=== PATIENT | male | born 1975 | race Caucasian/White ===

== ENCOUNTER 2019-09-09 10:27 | Outpatient (REF) | payer BC, SELFPAY ==
[2019-09-09 12:37] LABS: HCT 44.2 % (40.0-50.0); HGB 14.3 g/dL (13.5-17.5); Mean Corp. HGB Concentration 32.4 g/dL (32.0-36.0); Mean Corpuscular Hemoglobin 27.8 pg (27.0-33.0); Mean Corpuscular Volume 85.8 fL (80-95); Mean Platelet Volume 10.8 fL (8.0-11.0); Platelet Count 316 x1000/uL (130-400); RBC 5.15 m/cumm (4.50-6.00); RBC Distribution Width 13.2 % (11.8-14.1); White Blood Cell Count 5.45 k/cumm (4.4-10.8)
[2019-09-09 12:48] LABS: Prothrombin Time 9.9 sec (9.3-11.0)
[2019-09-09 12:49] LABS: ALT 30 U/L (16-63); AST 24 U/L (15-37); Albumin 4.6 g/dL (3.4-5.0); Alkaline Phosphatase 56 U/L (46-116); Anion Gap 11.4 mmol/L (3-11); BUN 21 mg/dL (7-18); Bilirubin, Total 0.5 mg/dL (0.2-1.0); CO2 27.6 mmol/L (21.0-32.0); Calcium 9.6 mg/dL (8.5-10.1); Chloride 105 mmol/L (98-107); Glucose 90 mg/dL (70-100); Potassium 4.7 mmol/L (3.5-5.1); Sodium 144 mmol/L (136-145); Total Protein 7.8 g/dL (6.4-8.2)
== END 2019-09-09 10:47 ==
LOC: NCHCN 10:27
PROVIDERS: PCP Family Medicine; Visit Provider Family Medicine
DX: R14.0 Abdominal distension (gaseous) (principal); F10.99 Alcohol use, unspecified with unspecified alcohol-induced disorder
CPT/HCPCS: 80053; 85027; 85610

== ENCOUNTER 2019-09-13 01:24 | Outpatient (CLI) | payer BC, SELFPAY ==
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
== END 2019-09-13 01:44 ==
PROVIDERS: PCP Family Medicine; Visit Provider Family Medicine
DX: R14.0 Abdominal distension (gaseous) (principal); F10.10 Alcohol abuse, uncomplicated
CPT/HCPCS: 76700

== ENCOUNTER 2020-03-04 09:54 | Emergency (ER) | payer BC, SELFPAY ==
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
[2020-03-04 09:58] VITALS: BP 155/86; PULSE 80; RESP 16; TEMP 36.3; O2SAT 98
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
--- NOTE | 2020-03-04 10:17 | DI.RAD_ITS ---
EXAM: XR WRIST RT COMPLETE CLINICAL HISTORY: rolled wrist, ulnar pain. TECHNIQUE: 2D digital imaging was performed. COMPARISON: No exams were available for comparison FINDINGS: BONES: No acute fracture is present. No bony destructive lesion is seen. JOINTS: The carpal bones are normally aligned. SOFT TISSUE: Normal. IMPRESSION: Unremarkable radiographs of the right wrist. DATA REPOSITORY: RADIATION DOSE DELIVERED:
--- NOTE | 2020-03-04 10:30 | DI.VRAD_ITS ---
PROCEDURE INFORMATION: Exam: XR Right Hand Exam date and time: 03/04/2020 10:17 AM Age: 44 years old Clinical indication: Other: Pain ulnar side after punching bag TECHNIQUE: Imaging protocol: XR Right hand. Views: 3 or more views. COMPARISON: No relevant prior studies available. FINDINGS: There is a smooth base of ulnar styloid step-off without associated soft tissue swelling, likely chronic. Otherwise, no evidence of acute fracture. No dislocation. Alignment is maintained. Joint spaces are maintained. IMPRESSION: There is a smooth base of ulnar styloid step-off without associated soft tissue swelling, likely chronic. Otherwise, no evidence of acute fracture. Dictated and Authenticated by: Isaiah Crump MD. Ordering:ROSALIND Giang MD
--- NOTE | 2020-03-04 10:31 | DI.VRAD_ITS ---
PROCEDURE INFORMATION: Exam: XR Right Wrist Exam date and time: 03/04/2020 10:18 AM Age: 44 years old Clinical indication: Other: Rolled wrist, ulnar pain TECHNIQUE: Imaging protocol: XR Right wrist. Views: 3 or more views. COMPARISON: No relevant prior studies available. FINDINGS: There is a smooth base of ulnar styloid step-off without associated soft tissue swelling, likely chronic. Otherwise, no evidence of acute fracture. No dislocation. Alignment is maintained. Joint spaces are maintained. IMPRESSION: There is a smooth base of ulnar styloid step-off without associated soft tissue swelling, likely chronic. Otherwise, no evidence of acute fracture. Dictated and Authenticated by: Isaiah Crump MD. Ordering:ROSALIND Giang MD
== END 2020-03-04 10:45 | disposition home or self-care (01) ==
PROVIDERS: Emergency Provider Physician Assistant; PCP Family Medicine
DX: S63.501A Unspecified sprain of right wrist, initial encounter (principal); W21.89XA Striking against or struck by other sports equipment, initial encounter
CPT/HCPCS: 29125; 99283; 73110; 73130; L3908

== ENCOUNTER 2021-12-04 15:08 | Outpatient (REF) | payer BC, SELFPAY ==
[2021-12-04 15:13] LABS: HCT 47.1 % (40.0-50.0); HGB 14.8 g/dL (13.5-17.5); MCH 27.3 pg (27.0-33.0); MCHC 31.4 % (32.0-36.0); MCV 86.7 fL (80-95); MPV 10.5 fL (8.0-11.0); Platelet Count 332 10^3/uL (130-400); RBC 5.43 10^6/uL (4.36-5.78); RDW 13.2 % (11.8-14.1); RDW-SD 41.2 fL; WBC 6.26 10^3/uL (4.4-10.8)
[2021-12-04 15:31] LABS: Hemoglobin A1C 5.5 % (<5.7)
[2021-12-04 15:46] LABS: ALT 51 U/L (16-63); AST 29 U/L (15-37); Albumin 4.3 g/dL (3.4-5.0); Alkaline Phosphatase 76 U/L (46-116); Anion Gap 10.8 mmol/L (3-11); BUN 18 mg/dL (7-18); Bilirubin, Total 0.4 mg/dL (0.2-1.0); CO2 28.2 mmol/L (21.0-32.0); CREATININE 1.1 mg/dL (0.70-1.30); Calcium 9.1 mg/dL (8.5-10.1); Calculated LDL 203 mg/dL (<100); Chloride 103 mmol/L (98-107); Cholesterol 294 mg/dL (<200); Glucose 99 mg/dL (74-106); HDL Cholesterol 56 mg/dL (40-60); Potassium 4.2 mmol/L (3.5-5.1); Sodium 142 mmol/L (136-145); TSH (W/Ref FT4) 1.59 uIU/mL (0.36-3.74); Total Protein 7.6 g/dL (6.4-8.2); Triglyceride 176 mg/dL (<150)
[2021-12-05 12:03] LABS: HBs Antibody, Quant 147.4 mIU/mL (See Note); Hepatitis B Surface Ab Positive (See Note)
[2021-12-05 12:12] LABS: Hepatitis B Surface Ag Negative (Negative)
[2021-12-05 12:41] LABS: Hep B Core Antibody Negative (Negative)
[2021-12-05 13:02] LABS: Hepatitis C Ab w Rflx HCV PCR Negative (Negative)
[2021-12-05 14:38] LABS: HIV-1/2 Ag & Ab Screen Negative (Negative)
== END 2021-12-04 15:09 | disposition home or self-care (01) ==
LOC: NCHCN 15:08
PROVIDERS: PCP Family Medicine; Visit Provider Family Medicine
DX: R63.5 Abnormal weight gain (principal); R23.8 Other skin changes; F10.10 Alcohol abuse, uncomplicated; Z00.00 Encounter for general adult medical examination without abnormal findings; Z13.220 Encounter for screening for lipoid disorders; Z13.1 Encounter for screening for diabetes mellitus; Z11.4 Encounter for screening for human immunodeficiency virus [HIV]; Z11.59 Encounter for screening for other viral diseases
CPT/HCPCS: 80053; 80061; 85027; 86704; 86706; 86803; 87340; 87389; 83036; 84443

== ENCOUNTER 2022-03-17 07:42 | Outpatient (REF) | payer BC, SELFPAY ==
[2022-03-17 18:13] LABS: ALT 87 U/L (16-63); Calculated LDL 79 mg/dL (<100); Cholesterol 171 mg/dL (<200); HDL Cholesterol 78 mg/dL (40-60); Triglyceride 71 mg/dL (<150)
== END 2022-03-17 07:43 | disposition home or self-care (01) ==
LOC: NCHCN 07:42
PROVIDERS: PCP Family Medicine; Visit Provider Family Medicine
DX: E78.5 Hyperlipidemia, unspecified (principal); Z79.899 Other long term (current) drug therapy
CPT/HCPCS: 80061; 84460

== ENCOUNTER 2022-12-24 13:44 | Outpatient (REF) | payer BC, SELFPAY ==
[2022-12-24 15:19] LABS: HCT 44.5 % (40.0-50.0); MCH 26.9 pg (27.0-33.0); MCHC 31.5 % (32.0-36.0); MCV 85 fL (80-95); MPV 10.2 fL (8.0-11.0); Platelet Count 303 10^3/uL (130-400); RBC 5.21 10^6/uL (4.36-5.78); RDW 13.7 % (11.8-14.1); RDW-SD 42.7 fL; WBC 7.14 10^3/uL (4.4-10.8)
[2022-12-24 15:51] LABS: ALT 31 U/L (16-63); AST 20 U/L (15-37); Albumin 3.9 g/dL (3.4-5.0); Alkaline Phosphatase 81 U/L (46-116); Anion Gap 9.3 mmol/L (3-11); BUN 12 mg/dL (7-18); Bilirubin, Total 1.1 mg/dL (0.2-1.0); CO2 27.7 mmol/L (21.0-32.0); CREATININE 1.1 mg/dL (0.70-1.30); Calcium 9.6 mg/dL (8.5-10.1); Chloride 106 mmol/L (98-107); Estimated GFR 83.84 (mL/min/1.73m2); Glucose 105 mg/dL (74-106); Sodium 143 mmol/L (136-145); Total Protein 7.5 g/dL (6.4-8.2)
== END 2022-12-24 13:45 | disposition home or self-care (01) ==
LOC: NCHCN 13:44
PROVIDERS: PCP Family Medicine; Visit Provider Family Medicine
DX: R19.7 Diarrhea, unspecified (principal)
CPT/HCPCS: 80053; 85027; 84443

== ENCOUNTER 2023-09-07 06:58 | Day surgery (SDC) | payer BC, SELFPAY ==
--- NOTE | 2023-09-06 15:32 | W.PM.DSUDISC ---
Date of service: 09/07/23 Time of Service: 08:40 Discharge Plan Disposition Patient Disposition: Home Condition: Good Discharge Details Reason For Visit: Screening colonoscopy Attending Provider: Trevon Jara Primary Care Provider: Rosemary Acharya Home Meds and New Rx's Prescriptions: Continued rosuvastatin 40 mg tablet 40 mg PO DAILY Qvar RediHaler 40 mcg/actuation HFA aerosol breath activated 2 inh inhalation BID omeprazole 40 mg capsule,delayed release(DR/EC) 40 mg PO DAILY albuterol sulfate 8.5 GM HFA aerosol inhaler 2 puff Inhalation PRN PRN Discontinued bisacodyl [Dulcolax (bisacodyl)] 5 mg tablet,delayed release (DR/EC) 5 mg PO ONCE Qty: 4 0RF Rx Instructions: Take per colonoscopy instructions provided by ordering providers office polyethylene glycol 3350 17 gram/dose powder 17 g PO ONCE Qty: 238 0RF Rx Instructions: Take per colonoscopy instructions provided by ordering providers office Discharge Instructions Additional Instructions: Rupesh, we were able to do your colonoscopy today without any difficulty. The quality of your prep was excellent. The colon was entirely normal. You will need another colonoscopy in 10 years. 1. If tolerated, consume a soft, low fiber diet for 1-2 days. 2[address] Do not drive, drink alcohol, operate machinery, make critical decisions, or do activities that require coordination or balance for 24 hours. 3. Because air was put into your colon during the procedure, expelling air from your rectum (passing gas or farting) is normal. 4. You may not have a bowel movement for 1-3 days because of the colonoscopy prep. This is normal. 5. Go directly to the emergency room if you notice any of the following: Develop chills (warm to touch), or if you have a thermometer and your temperature is above 101 Difficulty breathing or difficultly swallowing Persistent vomiting Severe abdominal pain, other than gas cramps Severe chest pain Black, tarry stools Any bleeding ? exceeding one tablespoon 6. Call your physician if the site where your intravenous was started becomes red, swollen, painful, and warm to touch. 7. Your physician has reviewed your pre-procedure medications. Please continue to take those medications as previously ordered. You will be given specific information/education regarding any changes to your medications before leaving. Activity:: Activity as Tolerated Diet:: As Tolerated Discharge Orders Discharge Orders: Discharge Order (Routine); Ordered 09/06/23 Ordered By: Trevon Jara DS: Diagnosis Discharge Diagnosis (1) Screen for colon cancer: Status: Acute Asessment and Plan: Normal screening colonoscopy; consider another follow-up in 10 years
--- NOTE | 2023-09-06 15:33 | W.COLOREPORT ---
Date of service: 09/07/23 Time of Service: 08:41 Colonoscopy Report Date of procedure: 09/07/23 Pre-op diagnosis general: screening colonoscopy Post-op diagnosis procedure note: other (Negative screening colonoscopy) Procedure: Colonoscopy Surgeon: Trevon Jara Anesthesia Type: General:No Airway Estimated blood loss (mL): 0 Pathology: none sent Complications: None Disposition: same day Indications: Rupesh is 48 years old and he needs a screening colonoscopy Prep: Miralax/Dulcolax Procedure Start Time: 08:20 Procedure End Time: 08:33 Retraction Time: 10 Findings: Negative screening colonoscopy Procedure Description: After the induction of monitored anesthetic care, and with the patient in left lateral decubitus position, I began by performing an external anorectal exam.? Perineum and skin were normal, as was the anal verge.? There was no not evidence of external hemorrhoids.? Next, I performed a digital rectal exam.? I did appreciate any abnormal findings.? Next, I advanced a colonoscope into the rectal vault.? I performed retroflexion.? This was normal.? Using insufflation, I then advanced the colonoscope beyond the rectal folds and into the sigmoid colon before advancing towards the cecum.? The quality of the prep was outstanding.? The scope was noted to be in the cecum by identification of the ileocecal valve and appendiceal orifice.? I then began withdrawing the colonoscope using repeated irrigation as necessary for full evaluation of the colonic mucosa. ?Once the scope was withdrawn to the level of the rectum, great care was taken to examine portions of the rectal folds.? I did not see any signs of tumors, polyps, or any other significant abnormalities of the colon. Finally, the scope was withdrawn and the patient was brought to the same-day surgery recovery unit as the anesthetic wore off. ?The findings and instructions were shared with the patient prior to discharge.
--- NOTE | 2023-09-07 05:11 | W.ANESPRE ---
General Info Date of Service Date Performed: 09/07/23 Height: 5 ft 9 in Weight: 98.43 kg Body Mass Index (BMI): 32.0 Surgical Procedure: Operation Date: 09/07/23 08:20 Proposed Procedure Side Surgeon parvez Jara MD Meds Allergies and Home Medications Allergies Allergy/AdvReac Type Severity Reaction Status Date / Time Penicillins Allergy Intermediate Hives Unverified 09/07/23 07:22 shellfish derived Allergy Intermediate Other (See Unverified 09/07/23 07:22 Comment) Home Medication Medication Instructions Recorded albuterol sulfate 90 mcg/actuation 2 puff inhalation PRN PRN 11/26/13 aerosol inhaler beclomethasone dipropionate 40 2 inh inhalation BID 06/05/23 mcg/actuation HFA breath activated aerosol (Qvar RediHaler) omeprazole 40 mg capsule,delayed 40 mg PO DAILY 06/05/23 release rosuvastatin 40 mg tablet 40 mg PO DAILY 06/05/23 Current Visit Medications: Current Medications Generic Name Dose Route Start Last Admin Trade Name Freq PRN Reason Stop Dose Admin Hyoscyamine Sulfate 0.125 mg 09/06/23 15:34 Hyoscyamine 0.125 Mg Sl/Oral/Chew SL 10/06/23 15:33 DIRECTED PRN Ringer's Solution 1,000 mls @ 80 mls/hr 09/07/23 06:00 IV 09/07/23 23:59 INFUSION ANNE IV Miscellaneous Supplies 1 each 09/07/23 06:00 Iv Access IV 09/07/23 23:59 DIRECTED ANNE Ondansetron HCl 4 mg 09/06/23 15:34 Ondansetron 4 Mg/2 Ml Vial IVP 10/06/23 15:33 Q4H PRN PRN Nausea / Vomiting Sodium Chloride 0 ml 09/07/23 06:00 Normal Saline Flush 10 Ml Syr IV 09/07/23 23:59 PRN PRN Sodium Chloride 0 ml 09/07/23 06:00 Normal Saline 10 Ml Vial IJ 09/07/23 23:59 DIRECTED PRN Sterile Water 0 ml 09/07/23 06:00 Water,Injection,Sterile 10 Ml Vial IJ 09/07/23 23:59 DIRECTED PRN PFSH Active Problems Active Problems: Problem Status Onset Code Screen for colon cancer Z12.11 Alcohol abuse F10.10 Obesity E66.9 Hyperlipidemia E78.5 Pain, joint, shoulder, left M25.512 Neck pain, chronic M54.2, G89.29 Diarrhea R19.7 Medical History Medical History (Updated 09/07/23 @ 07:26 by Carleen Coleman) Achilles tendon rupture Chronic blepharitis Hordeolum externum of right eye Elevated blood pressure reading Surgical History Surgical History (Updated 09/07/23 @ 07:26 by Carleen Coleman) History of ankle surgery achilles tendon repair bilaterally Tobacco Smoking/Tobacco Use Status: Never Alcohol Alcohol Intake: current Alcohol intake frequency: 3 or more drinks per day Substance Use Substance use: Never Substance use type: does not use Vital Signs and Lab Results Vital Signs Most Recent Vital Signs in EMR: Temp Pulse Resp BP Pulse Ox 36.3 C L 84 14 139/106 H 97 09/07/23 07:31 09/07/23 07:31 09/07/23 07:31 09/07/23 07:31 09/07/23 07:31 Lab Results Blood Type / Crossmatch: No Data to Display Complete Blood Count: No Data to Display Complete Metabolic Panel: No Data to Display Liver Function Panel: No Data to Display Coagulation Panel: No Data to Display Cardiac Panel: No Data to Display Arterial Blood Gas: No Data to Display Venous Blood Gas: No Data to Display Pancreas Panel: No Data to Display Thyroid Panel: No Data to Display Infectious Disease: No Data to Display Blood Cultures: No Data to Display Toxicology Panel: No Data to Display Anesthesia Assessment and Plan Anesthesia History Personal History: No History of Anesthesia Complications Family History: No Family History of Anesthesia Complications Exercise Tolerance Exercise Tolerance: Metabolic Equivalents>4 Cardiac & Pulmonary Exam Cardiac Exam: Normal S1/S2 Heart Sounds Pulmonary Exam: Clear Bilateral Breath Sounds Implantable Cardiac Device Does patient have a Pacemaker or an ICD?: No Airway Exam Known Difficult Airway: No Mallampati Class: 3 Mouth Opening: Normal (> 3cm) Thyromental Distance: Less than 3 cm Neck Range of Motion: Full ROM Neck Circumference: Normal Teeth Condition: Normal Dentition ASA Classification ASA Score: ASA 2 Emergency Case?: No NPO Status NPO Status: NPO Clears >2 hours, Solids >8 hours Anesthesia Plan Resuscitation Status: Full Code Anesthesia Technique: General Anesthesia Airway Planned: Natural Airway Monitors Used: Standard Monitors Preoperative Comments:: 48 yo male for colo. Sig PMHx: asthma (albuterol, Qvar), GERD (omeprazole), daily EtOH, neck pain. never smoker.
[2023-09-07 07:31] VITALS: BP 139/106; PULSE 84; RESP 14; TEMP 36.3; O2SAT 97
[2023-09-07] MEDS: Lactated Ringers 1,000 ML 80 ML IV (07:40)
[2023-09-07 07:41] VITALS: BMI 32.0
[2023-09-07 08:40] VITALS: BP 129/90; PULSE 78; RESP 17; TEMP 36.5; O2SAT 97
--- NOTE | 2023-09-07 08:48 | W.ANESPOSTOP ---
Postoperative Evaluation Date, Time and Location Date Performed: 09/07/23 Time Performed: 08:48 Patient Location: Day Surgery Unit Vital Signs Most Recent Imported Vital Signs: Most Recent Vital Signs Temp Pulse Resp BP Pulse Ox 36.5 C 78 17 129/90 97 09/07/23 08:40 09/07/23 08:40 09/07/23 08:40 09/07/23 08:40 09/07/23 08:40 Pain Score Most Recent Pain Score: Most Recent Pain Score Pain Level 0 09/07/23 08:40 Assessment Mental Status: Awake (Alert & Oriented to Patient Baseline) Airway and Respiratory Function: Patent airway with normal (patient baseline) respiratory exam Cardiovascular Function: Hemodynamically Stable Hydration Status: Adequately Hydrated Nausea & Vomiting: No Nausea or Vomiting Pain: Pt. Denies Any Pain Peripheral Nerve Block: Patient did not receive a nerve block
[2023-09-07 09:09] VITALS: BP 127/96; PULSE 72; RESP 18; TEMP 36.6; O2SAT 99
== END 2023-09-07 09:35 | disposition home or self-care (01) ==
LOC: SUR 06:59
PROVIDERS: PCP Family Medicine; Visit Provider Surgery
PROC: 0DJD8ZZ Inspection of Lower Intestinal Tract, Via Natural or Artificial Opening Endoscopic (ICD-10-PCS; CPT 45378; principal; 2023-09-07 08:15)
DX: Z12.11 Encounter for screening for malignant neoplasm of colon (principal); K21.9 Gastro-esophageal reflux disease without esophagitis
CPT/HCPCS: 45378; 00123; J2001

== ENCOUNTER 2024-06-08 19:21 | Outpatient (REF) | payer BC, SELFPAY ==
[2024-06-08 20:36] LABS: HCT 42.8 % (40.0-50.0); HGB 14.1 g/dL (13.5-17.5); MCH 27.5 pg (27.0-33.0); MCHC 32.9 % (32.0-36.0); MCV 84 fL (80-95); MPV 10.8 fL (8.0-11.0); Platelet Count 272 10^3/uL (130-400); RBC 5.12 10^6/uL (4.36-5.78); RDW 13.6 % (11.8-14.1); RDW-SD 41.8 fL; WBC 5.37 10^3/uL (4.4-10.8)
[2024-06-08 20:51] LABS: ALT 52 U/L (16-63); AST 29 U/L (15-37); Albumin 4.1 g/dL (3.4-5.0); Alkaline Phosphatase 68 U/L (46-116); Anion Gap 9.8 mmol/L (3-11); BUN 23 mg/dL (7-18); Bilirubin, Total 0.54 mg/dL (0.2-1.0); CO2 26.2 mmol/L (21.0-32.0); CREATININE 1.2 mg/dL (0.70-1.30); Chloride 105 mmol/L (98-107); Estimated GFR 75.06 (mL/min/1.73m2); Glucose 97 mg/dL (74-106); Potassium 3.9 mmol/L (3.5-5.1); Sodium 141 mmol/L (136-145); Total Protein 7.1 g/dL (6.4-8.2)
[2024-06-08 21:19] LABS: Hemoglobin A1C 5.7 % (<5.7)
== END 2024-06-08 19:22 | disposition home or self-care (01) ==
LOC: NCHCN 19:21
PROVIDERS: PCP Family Medicine; Visit Provider Family Medicine
DX: R10.9 Unspecified abdominal pain (principal); Z13.1 Encounter for screening for diabetes mellitus
CPT/HCPCS: 80053; 85027; 83036

== ENCOUNTER 2025-09-26 09:59 | Emergency (ER) | payer BC, SELFPAY ==
[2025-09-26 10:03] VITALS: BP 126/92; PULSE 102; RESP 18; TEMP 37; O2SAT 97
--- NOTE | 2025-09-26 10:39 | DI.RAD_ITS ---
Exam(s) XR ANKLE LT COMPLETE EXAM: XR ANKLE LT COMPLETE CLINICAL HISTORY: achilles tendon injury TECHNIQUE: 2D digital imaging was performed of the left ankle. Three images were obtained. AP, lateral and oblique views were obtained. COMPARISON: No exams were available for comparison FINDINGS: BONES: No acute fracture is present. No bony destructive lesion is seen. JOINTS:The ankle mortise is normally aligned. SOFT TISSUE: There is soft tissue swelling posterior to the calcaneus. IMPRESSION: Soft tissue swelling posterior to the calcaneus. If there is concern for tendon injury, an MRI should be considered for further evaluation. DATA REPOSITORY: RADIATION DOSE DELIVERED:
--- NOTE | 2025-09-26 11:53 | W.ED.GENAD ---
Discharge Plan Disposition Patient Disposition: Home Condition: Stable Discharge Details Clinical Impression: Strain of left Achilles tendon Primary Care Provider: Rosemary Acharya ED Provider: Macy Sanabria Home Meds and New Rx's Prescriptions: No Action acamprosate 333 mg tablet,delayed release (DR/EC) 333 mg PO BID Rx Instructions: administer with mid-day and evening meals bupropion HCl 100 mg tablet sustained-release 12 hr 100 mg PO BID albuterol sulfate 90 mcg/actuation HFA aerosol inhaler 2 puff inhalation Q4H PRN rosuvastatin 40 mg tablet 40 mg PO DAILY Qvar RediHaler 40 mcg/actuation HFA aerosol breath activated 2 inh inhalation BID omeprazole 40 mg capsule,delayed release(DR/EC) 40 mg PO DAILY Discharge Instructions Instructions: Achilles tendon injury Additional Instructions: You were seen in the emergency department today for evaluation of pain in your left Achilles tendon. In our department had a full physical examination performed which was reassuring against complete rupture, but you likely did sustain a sprain or partial injury. You had an x-ray that did not show any fractures but did demonstrate some swelling. You should continue to wear your tall boot, we provided you with a heel lift but I do recommend that you look [id number] for a more comfortable and conventional shaped 1. Please use therapeutic dosing of Tylenol (acetaminophen) & Advil (ibuprofen) in an alternating fashion as follows: Take 1000mg of Tylenol every 6 hours without missing doses- that is 4 times per day. [place] in between the Tylenol doses, take 600mg of Advil also on a 6 hour schedule, that is also 4 times per day. With this strategy, you will be taking something for fever/pain as often as every 3 hours. The daily maximum dosing of Tylenol is 4000mg, and the daily maximum dosing of Advil is 2400mg. Please note that some common cold medications & prescription pain medications may contain acetaminophen and you need to read OTC drug labels and factor that in to maximum daily doses. You can use ice and elevation for assistance in managing swelling. I have placed a referral to the orthopedics team for you to follow-up. Please follow-up with your primary care provider in the next few days to discuss this visit and any symptoms that change, worsen, or persist. Thank you for allowing us to be part of your care. Stand Alone Forms: Portal Information, Work Release Referrals: Dez Winn MD [ [facility] STAFF PHYSICIAN, Orthopaedic Surgical] - 1 week Discharge Data Discharge Date/Time-TO BE ENTERED AT DEPARTURE: 09/26/25 12:07 HPI General Mode of arrival: ambulatory. Date/Time Provider Initiated Documentation: 09/26/25 10:11. Limitations to Documentation: no limitations. Information obtained by: patient and old records reviewed. HPI Narrative: This is a 50-year-old male patient with a past medical history significant for bilateral Achilles tendon ruptures, left 1 ruptured in 2020 and was surgically repaired, presenting for evaluation of pain in his left Achilles tendon. The patient reports that he noticed the pain over the last day or so, located in the lateral aspect of the distal tendon. He cannot think of any specific onset during trauma or injury, did have an episode where he had to run across a street a few days ago, but did not have a significant pain at that time. He has used Tylenol at home and has been wearing his walking boot. He put his own inserts in it to make a heel lift. The patient did not injure any other part of his body, denies numbness or tingling distal to this injury, has been ambulating which does cause some discomfort. He felt like his discomfort was worse actually last night when he was resting. Related Data Home Medications Medication Instructions Recorded Confirmed beclomethasone dipropionate 40 2 inh inhalation BID 06/05/23 09/26/25 mcg/actuation HFA breath activated aerosol (Qvar RediHaler) omeprazole 40 mg capsule,delayed 40 mg PO DAILY 06/05/23 09/26/25 release rosuvastatin 40 mg tablet 40 mg PO DAILY 06/05/23 09/26/25 acamprosate 333 mg tablet,delayed 333 mg PO BID 08/23/24 09/26/25 release albuterol sulfate 90 mcg/actuation 2 puff inhalation Q4H PRN 08/23/24 09/26/25 aerosol inhaler bupropion HCl 100 mg tablet,12 hr 100 mg PO BID 08/23/24 09/26/25 sustained-release Allergies Allergy/AdvReac Type Severity Reaction Status Date / Time Penicillins Allergy Intermediate Hives Unverified 09/26/25 10:11 shellfish derived Allergy Intermediate Other (See Unverified 09/26/25 10:11 Comment) General Stated Complaint: Orthopedic ISTA: 3 Exam Narrative Exam Narrative: Gen: Awake and alert, in no apparent distress HEENT: Non-icteric sclera Neck: Supple Lungs: No apparent respiratory distress, normal respiratory effort. CV: Appears well perfused Abdomen: Non-distended MSK: Moves 4 extremities without apparent limitation in ROM. The patient has full range of motion at the ankle and preserved strength with dorsi and plantarflexion. There are no defects palpable along the Achilles tendon, some tenderness is appreciated laterally at the inferior aspect, mild soft tissue swelling without overlying skin changes otherwise. No tenderness to palpation of the knee or calf, Wood test is normal, CSM's intact distal to this injury. Skin: Visualized skin without rashes, cyanosis. Neuro: Normal Gait, no obvious focal deficits or facial asymmetry. Speaks in full, clear sentences. Psych: Appropriate for situation. Course Vital Signs Vital signs: Vital Signs Temperature 37.0 C 09/26/25 10:03 Pulse 102 H 09/26/25 10:03 Respiratory Rate 18 09/26/25 10:03 Blood Pressure 126/92 H 09/26/25 10:03 Pulse Oximetry 97 09/26/25 10:03 Temperature 37.0 C 09/26/25 10:03 Temperature Source Oral 09/26/25 10:03 Pulse 102 H 09/26/25 10:03 Respiratory Rate 18 09/26/25 10:03 Blood Pressure 126/92 H 09/26/25 10:03 Pulse Oximetry 97 09/26/25 10:03 Oxygen Delivery Method Room Air 09/26/25 10:03 Oxygen Flow Rate 0 09/26/25 10:03 Pain Level 0 09/26/25 10:03 Medical Decision Making This is a 50-year-old male patient presenting for evaluation of Achilles tendon injury. Differential includes but is not limited to partial rupture, sprain/strain, my exam is less concerning for a complete rupture. Reassuringly, this is an isolated complaint and the patient has no evidence of comorbid near foot injury, nor neurovascular derangement. The patient declines medications for management of pain at this time, we will obtain an x-ray of the affected ankle. -X-ray obtained, shows soft tissue swelling but no fractures or other osseous abnormalities. I did discuss the case with Dr. Winn, the patient already has a tall walking boot, we did provide him with a heel lift, though our orthopedic supply is quite hard and uncomfortable and I did automobile club travel counselor him to purchase it more comfortable 1 [id number] at the pharmacy. A referral for orthopedics was placed, the patient was counseled on protected weightbearing with crutches and walking boot as tolerated. At this time, the patient has had a full medical evaluation and is safe for discharge to home. They are hemodynamically stable, ambulatory, and tolerating PO. They are understanding of the follow-up plan and return precautions. They left our facility without incident. Macy Sanabria MD [facility] All Active Problems (Updated 09/26/25 @ 11:55 by Macy Sanabria MD) Strain of left Achilles tendon (Acute) Dystrophy of nail due to trauma (Acute) Ingrown toenail (Acute) Overweight (Acute) Screen for colon cancer (Acute) Alcohol abuse (Chronic) Obesity (Chronic) Hyperlipidemia (Acute) Pain, joint, shoulder, left (Acute) Neck pain, chronic (Acute) Diarrhea (Acute) Medical History Blepharitis Achilles tendon rupture Chronic blepharitis Hordeolum externum of right eye Elevated blood pressure reading Surgical History History of colonoscopy (~08/2023) Neg Cost History of ankle surgery achilles tendon repair bilaterally Social History Smoking/Tobacco Use Status: Never Smoking risk assessment performed?: Yes Alcohol Intake: current Alcohol Intake frequency: 3 or more drinks per day Alcohol type: beer, wine and hard liquor Drug use: Never Substance use type: does not use Details: alcohol: t-3, 5 drinks Housing: house Current gender identity: male Do you feel safe at home: Yes Do you feel safe in your relationship?: Yes PAWSS Have you Been Recently Intoxicated or Drunk Within the Last 30 days?: Yes Have you Ever Experienced Previous Episodes of Alcohol Withdrawal?: No Have you ever Experienced Withdrawal Seizures?: No Have you ever Experienced Delirium Tremens(DT)s?: No Have you ever undergone Alcohol Rehabilitation Treatment (i.e, inpt ot outpatient treatment programs)?: No Have you ever Experienced Blackouts?: No Have you ever Combined Alcohol with other Downers within the last 90 days?: No Have you ever Combined Alcohol with any other Substance of Abuse during the last 90 days?: No Positive Blood Alcohol level on Presentation? [PCS.BAL]: No Evidence of Increased Autonomic Activity (i.e. HR>120, tremor, sweating, agitation, nausea)?: No Result: 1
== END 2025-09-26 12:07 | disposition home or self-care (01) ==
PROVIDERS: Emergency Provider Emergency Medicine; PCP Family Medicine
DX: S86.012A Strain of left Achilles tendon, initial encounter (principal); X58.XXXA Exposure to other specified factors, initial encounter
CPT/HCPCS: 99283 ×2; 73610

== ENCOUNTER → 2025-10-26 00:30 | Outpatient (CLI) | payer BC, SELFPAY ==
--- NOTE | 2025-10-26 10:50 | DI.MRI_ITS ---
Exam(s) MR LOWER JOINT LT WO EXAM: MR LOWER JOINT LT WO CLINICAL HISTORY: RUPTURE OF L ACHILLES TENDON, STRAIN OF L ACHILLES TENDON, S86.012D TECHNIQUE: Multiplanar multisequence MRI was performed without intravenous contrast. COMPARISON: MR MR ANKLE WO CONTRAST LEFT from 06/14/2021 CR XR ANKLE LT COMPLETE from 09/26/2025 FINDINGS: The examination is limited due to patient motion artifact. BONES/JOINTS: No fracture or contusion pattern. No bone lesions identified. The talar dome is smooth. The ankle mortise is maintained. No joint effusion is present. There are findings in the posterior calcaneus consistent with the patient's Achilles tendon repair. LIGAMENTS: The tibiofibular and calcaneofibular ligaments are intact. The talofibular ligaments are intact. The deltoid ligament is intact. The syndesmosis is unremarkable. Sinus tarsi is normal. MUSCULOTENDINOUS STRUCTURES: Achilles tendon: The patient has had a prior Achilles tendon repair. There is linear hyperintense signal seen within the lateral aspect of the Achilles tendon. This may be vascular. However partial tear should be considered. There is a small amount of hyperintense signal in the soft tissues seen around the Achilles tendon near its insertion site. Plantar fascia: Unremarkable. Anterior Extensor tendons: Unremarkable. Posterior Tibialis: Unremarkable. Flexor Digitorum longus: Unremarkable. Flexor Hallucis longus: Unremarkable. Peroneus longus: Unremarkable. Peroneus brevis:Unremarkable. SOFT TISSUES: Unremarkable. OTHER FINDINGS: None. IMPRESSION: 1. The examination is limited by patient motion artifact. 2. The patient has had a prior Achilles tendon repair. 3. There is linear hyperintense signal seen on the T2 weighted images within the Achilles tendon. Vascular versus partial tear. There is a small amount of hyperintense signal seen in the surrounding soft tissues on the T2 weighted images which may represent edema. DATA REPOSITORY:
== END ==
LOC: DI 00:30
PROVIDERS: PCP Family Medicine; Visit Provider Family Medicine
DX: S86.012D Strain of left Achilles tendon, subsequent encounter (principal)
CPT/HCPCS: 73721